=== PATIENT | female | born 1990 | race Hispanic/Latino ===

== ENCOUNTER 2023-04-05 22:56 | Emergency (ER) | payer OTHER, SELFPAY ==
[2023-04-05 22:58] VITALS: PULSE 74; RESP 20; TEMP 36; O2SAT 100; BMI 33.0
[2023-04-05 23:02] VITALS: BP 138/95
--- NOTE | 2023-04-05 23:06 | DI.RAD.S_ITS ---
PROCEDURE: XR HAND RT MIN 3V INDICATIONS: Thumb pain after injury TECHNIQUE: 3 views of the hand(s) acquired. COMPARISON: None. FINDINGS: Bones: No definite fractures or dislocations however the morphology of the far distal tuft of the 1st distal phalanx suggest possible tuft fracture. Carpal bones are normally aligned. No suspicious bony lesions. Soft tissues: No suspicious soft tissue calcifications. IMPRESSION: Possible distal tuft fracture, otherwise normal.. Dictated by: Mushtaq Rivera M.D. on 04/05/2023 at 23:39 Approved by: Mushtaq Rivera M.D. on 04/05/2023 at 23:40
--- NOTE | 2023-04-05 23:19 | ED_ITS ---
HPI - General Adult General Chief complaint: Extremity Injury, Upper Stated complaint: finger smashed in car door Time Seen by Provider: 04/05/23 23:05 Source: patient Mode of arrival: Ambulatory History of Present Illness HPI narrative: Patient is a 33-year-old female who is right-hand dominant is here for evaluation of a right thumb injury. The event occurred just prior to arrival. She was at work. 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 She is discomfort at the tip of her thumb. Swelling of the tip of her thumb. No other injuries from the event. Related Data Allergies Allergy/AdvReac Type Severity Reaction Status Date / Time acetaminophen [From Percocet] AdvReac ITCHING Verified 04/05/23 23:02 oxycodone [From Percocet] AdvReac ITCHING Verified 04/05/23 23:02 Review of Systems Constitutional Constitutional: Reports system reviewed and no additional complaints, except as documented Musculoskeletal Musculoskeletal: Reports system reviewed and no additional complaints, except as documented Integumentary/Breasts Skin/Breast: Reports system reviewed and no additional complaints, except as documented Neurologic Neurologic: Reports system reviewed and no additional complaints, except as documented Exam Initial Vital Signs Initial Vital Signs: Vital Signs Temperature 96.8 F L 04/05/23 22:58 Pulse Rate 74 04/05/23 22:58 Respiratory Rate 20 04/05/23 22:58 Pulse Oximetry 100 04/05/23 22:58 Oxygen Delivery Method Room Air 04/05/23 22:58 Const General: cooperative and comfortable Cardio Pulses: radial pulses present on the right Skin Other: Bruising to the pad of the right thumb Extrem Other: Discomfort to palpation of the distal portion of the right thumb distal to the I P joint. Swelling to this area. There was a very small subungual hematoma. Procedures Orthopedic Splinting/Casting Injury #1: Side: right Upper Extremity Injury Location: finger (Thumb) Upper Extremity Immobilizer: aluminum form splint Post splinting neuro exam: no change Post splinting vascular exam: no change Placed by: Nursing Course Orders Ordered: ED Orders 04/05/23 23:06 XR hand RT min 3V Stat Vital Signs Vital signs: Vital Signs - 8 hr 04/05/23 22:58 04/05/23 23:02 04/05/23 23:49 Temperature 96.8 F L Pulse Rate 74 Respiratory Rate 20 Blood Pressure 138/95 H Pulse Oximetry 100 Oxygen Delivery Method Room Air Room Air Medical Decision Making Imaging Data Extremity x-ray #1: Radiologist's Impression: PROCEDURE: XR HAND RT MIN 3V INDICATIONS: Thumb pain after injury TECHNIQUE: 3 views of the hand(s) acquired. COMPARISON: None. FINDINGS: Bones: No definite fractures or dislocations however the morphology of the far distal tuft of the 1st distal phalanx suggest possible tuft fracture. Carpal bones are normally aligned. No suspicious bony lesions. Soft tissues: No suspicious soft tissue calcifications. IMPRESSION: Possible distal tuft fracture, otherwise normal.. MDM Narrative Medical decision making narrative: X-ray does have concern for tuft fracture. This does fit her clinical presentation. There are no breaks in the skin. There is a very small subungual hematoma which I feel would not be amenable to any nail trephination. She was placed in aluminum splint mostly to protect her thumb. She was given care instructions and return precautions. She expressed understanding and agreement. Discharge Plan Departure Patient Disposition: Home Clinical Impression: Closed fracture of tuft of distal phalanx of right thumb Instructions: DI for Finger Fracture Activity Restrictions/Additional Instructions: The splint is for your comfort and to protect your thumb. You can take it off to shower and wash your hands. The type of fracture you have does not specifically need immobilized so once your finger starts to feel better you can take the splint off completely. The only restrictions with use of the right hand is avoiding activities that make the pain worse. You can take Tylenol/ibuprofen. Return to the emergency department for new symptoms. Referrals: Miscellaneous,Doctor [Primary Care Provider] - Stand Alone Forms: Patient Portal/API
== END 2023-04-05 23:51 | disposition home or self-care (01) ==
PROVIDERS: Emergency Provider Emergency Medicine
DX: S62.501A Fracture of unspecified phalanx of right thumb, initial encounter for closed fracture (principal); W23.0XXA Caught, crushed, jammed, or pinched between moving objects, initial encounter
CPT/HCPCS: 29130; 73130; 99283

== ENCOUNTER 2024-09-05 09:44 | Emergency (ER) | payer MEDICARE, SELFPAY ==
[2024-09-05 09:51] VITALS: BP 132/100; PULSE 63; RESP 16; O2SAT 100; BMI 32.1
--- NOTE | 2024-09-05 10:01 | PC.NURSE ---
Pt given ice pack for bug bite per pt request
--- NOTE | 2024-09-05 11:06 | ED_ITS ---
HPI - Skin/Abscess/Foreign Bdy General Chief complaint: Skin/Abscess/Foreign Body Stated complaint: Reaction to bee sting Time Seen by Provider: 09/05/24 11:06 Source: patient Mode of arrival: Ambulatory Limitations: no limitations History of Present Illness HPI narrative: Ms. Felton is a pleasant 34-year-old female with no significant past medical history who presents to the emergency department for a bee sting to her right forearm that occurred 3 days ago. Patient was outside when she was stung by what she believes was a bumble bee, the stinger was still attached to her and she had a difficult time trying to remove it. Since then she has had increasing redness and swelling on the right forearm and the area is very itchy. She applied Neosporin to the area yesterday, otherwise no other treatment. Reports that the last time she was stung by bee was many years ago and she does not recall if she had a reaction to it or not. She is having no other symptoms, no hives, fevers, chills, coughing, shortness of breath or other concerns. Related Data Previous Rx's ?Medication ?Instructions ?Recorded cephalexin 500 mg capsule 500 mg PO TID 7 days #21 cap s 09/05/24 prednisone 20 mg tablet 40 mg (2 x 20 mg) PO DAILY 5 days 09/05/24 #10 tabs Allergies Allergy/AdvReac Type Severity Reaction Status Date / Time Influenza Virus Vaccines Allergy Verified 09/05/24 09:54 oxycodone (From Percocet) AdvReac ITCHING Verified 04/05/23 23:02 Review of Systems Review of Systems ROS Unobtainable: All systems reviewed & are unremarkable except as noted in HPI and below Patient History Social History Smoking Status: Never smoker Smoking Status: Never smoker Exam Narrative Exam Narrative: GENERAL: 34 year old patient appears stated age. Well-developed patient, in no acute distress. HEAD: Atraumatic. Normocephalic. EYES: No scleral icterus. No injection or drainage. ENT: Nose without bleeding, purulent drainage. Airway patent. NECK: Trachea midline. Cervical ROM intact. CARDIOVASCULAR: Regular rate RESPIRATORY: ?Nonlabored respirations. ?Speaking in clear, full sentences. EXTREMITIES: On the palmar aspect of the right forearm the patient has approximately 7 cm area of erythema and induration. There is no central lesion or fluctuance. No drainage. No surrounding streaking erythema. Patient is neurovascularly intact distal to the bee sting. NEURO: AOx3. ?Clear speech. ?Moves all 4 extremities appropriately. SKIN: Bee sting on right forearm described above. Otherwise no rashes, no urticaria, no oropharyngeal mucous membrane lesions. Skin is warm and dry. Initial Vital Signs Initial Vital Signs: Vital Signs Pulse Rate 63 09/05/24 09:51 Respiratory Rate 16 09/05/24 09:51 Blood Pressure 132/100 H 09/05/24 09:51 Pulse Oximetry 100 09/05/24 09:51 Oxygen Delivery Method Room Air 09/05/24 09:51 Course Orders Ordered: Discontinued Medications Cephalexin HCl (Cephalexin 250 Mg Capsule) 500 mg PO NOW ONE Stop: 09/05/24 11:15 Last Admin: 09/05/24 11:29 Dose: 500 mg Documented By: Vital Signs Vital signs: Vital Signs - 8 hr 09/05/24 09:51 09/05/24 11:29 Pulse Rate 63 61 Respiratory Rate 16 16 Blood Pressure 132/100 H 158/80 H Pulse Oximetry 100 100 Oxygen Delivery Method Room Air Room Air MDM - Skin/Abscess/Foreign Bdy Medical Records Attestation: I reviewed the patient's medical records. MDM Narrative Medical decision making narrative: 34-year-old female with no significant past medical history who presents to the emergency department for a bee sting to her right forearm that occurred 3 days ago. Differential diagnosis includes but is not limited to local bee sting reaction, cellulitis, abscess, etc. On exam patient is in no acute distress, nontoxic appearing. She has a localized area of erythema and induration on the right palmar forearm where she had a bee sting 3 days ago. No streaking erythema, no systemic symptoms, no urticaria. Physical exam consistent with a local inflammatory bee sting reaction however because the erythema has been spreading we will treat with Keflex out of an abundance of caution for potential developing cellulitis as well. 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 Recommended supportive care as well. First dose of antibiotic given in the emergency department. Recommended follow up with the PCP and discussed strict ED return precautions. Patient verbalized understanding of all information is agreeable with the plan. She is stable for discharge home. Discharge Plan Departure Patient Disposition: Home Clinical Impression: Local reaction to bee sting Qualifiers: Encounter type: initial encounter Injury intent: accidental or unintentional Qualified Code(s): T63.441A - Toxic effect of venom of bees, accidental (unintentional), initial encounter Instructions: DI for Cellulitis -- Adult, DI for Insect Bites and Stings Activity Restrictions/Additional Instructions: Dear Rae Jose Francisco, Thank you for coming to the emergency department. Today you were evaluated for a bee sting. Your physical exam is consistent with a local inflammatory response to the bee sting but because of the redness spreading I am going to be covering you with antibiotics as well for skin infection. Please complete the full course of steroids in addition antibiotics and use Benadryl at home if needed for itching. Please be aware that prednisone can cause insomnia so take it earlier in the day. You may also apply cool compresses, topical hydrocortisone cream or other anti- itch cream to the area as well. Please follow up with the primary care doctor but return to the emergency department if you develop any new or worsening symptoms or other concerns. [facility] [place]. Please follow up with your primary care doctor within the next 2-3 days for ER follow-up. (If you do not have a PCP you can call [phone]. ?to schedule an appointment with an [facility] Primary Care Provider) IF YOU DEVELOP ANY NEW OR WORSENING SYMPTOMS, RETURN TO THE ER! Please read the attached instructions, they highlight more specific treatments and interventions for you at home. Thank you for letting me participate in your care, Suma Dougherty PA-C Prescriptions: New prednisone 20 mg tablet 40 mg PO DAILY 5 Days Qty: 10 0RF cephalexin 500 mg capsule 500 mg PO TID 7 Days Qty: 21 0RF Stand Alone Forms: Patient Portal/API
[2024-09-05 11:29] VITALS: BP 158/80; PULSE 61; RESP 16; O2SAT 100
--- NOTE | 2024-09-05 11:34 | PC.NURSE ---
Right arm bug bite noted. Redness and less than 1cm bite in the center. Pt reports getting bitten by bumble bee. denies fevers, no drainage noted.
== END 2024-09-05 11:34 | disposition home or self-care (01) ==
PROVIDERS: Emergency Provider Physician Assistant
DX: T63.441A Toxic effect of venom of bees, accidental (unintentional), initial encounter (principal)
CPT/HCPCS: 99283